=== PATIENT | female | born 1970 | race African-American/Black ===

== ENCOUNTER 2016-05-10 22:25 | Emergency (ER) | payer SELFPAY ==
[~2016-05-10] VITALS: Ht 170.2 cm; Wt 84.4 kg
[2016-05-10] MEDS ORDERED: NORVASC10 MG ORAL (22:44)
--- NOTE | 2016-05-10 22:47 | Emergency Room Report ---
History of Present Illness General Chief Complaint: Hypertension Source: Patient Present Illness HPI Patient is with complaints of uncontrolled hypertension She reports that she ran out of her Norvasc or 7 days ago Denies any chest pain or shortness of breath She denies any vomiting or diarrhea Denies any headache After smelling heavy amounts of marijuana on the patient She does state that she has been under a lot of stress her family member was here at the hospital recently with liver cancer She states that she did get a mild headache after smoking marijuana Patient recently had a change of living situation from [place] to [place] now states that she's going back to [place] However at this time does not have any medications Allergies: Coded Allergies: PENICILLINS (Verified Allergy, Intermediate, 05/10/16) Patient History Past Medical History: see triage record Pertinent Family History: none Now: No Reviewed Nursing Documentation: PMH: Agreed, PSxH: Agreed Nursing Documentation-PMH Past Medical History: No History, Except For Hx Hypertension: Yes Review of Systems All Other Systems: negative except mentioned in HPI Physical Exam Vital Signs Date Time Temp Pulse Resp B/P Pulse Ox O2 Delivery O2 Flow Rate FiO2 05/10/16 22:30 97.9 74 19 162/106 98 Room Air Sp02 EP Interpretation: reviewed, normal General Appearance: well appearing, no apparent distress Head: normocephalic, atraumatic Eyes: bilateral eye EOMI, bilateral eye PERRL ENT: hearing grossly normal, normal pharynx, TMs + canals normal, uvula midline Neck: full range of motion, supple, no meningismus, no bony tend Respiratory: lungs clear, normal breath sounds, no rhonchi, no respiratory distress, no retraction, no accessory muscle use Cardiovascular #1: normal peripheral pulses, regular rate, rhythm, no edema, no gallop, no JVD, no murmur Gastrointestinal: normal bowel sounds, non tender, soft, no mass, no organomegaly, non-distended, no guarding, no hernia, no pulsatile mass, no rebound Genitourinary: no CVA tenderness Musculoskeletal: normal inspection Neurologic: oriented x3, responsive, 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, motor strength/ tone normal, sensory intact Psychiatric: mood/affect normal Skin: normal color, no rash, warm/dry, palpation normal Lymphatic: normal inspection, no adenopathy Medical Decision Making Diagnostic Impression: Primary Impression: Hypertension ER Course Patient has a fairly benign medical evaluation Blood pressure systolic is 162 No signs of any obvious and organ injury or symptomatic pathology Patient was given a medication here And was given prescription for further outpatient followup Last Vital Signs Date Time Temp Pulse Resp B/P Pulse Ox O2 Delivery O2 Flow Rate FiO2 05/10/16 22:30 97.9 74 19 162/106 98 Room Air Status: improved Disposition: HOME, SELF-CARE Condition: Improved Scripts Amlodipine Besylate (Norvasc) 10 Mg Tablet 10 MG ORAL DAILY, #30 TAB Prov: YUKI LEE D.O. 05/10/16 Referrals: NOT CHOSEN IPA/,REFERRING (PCP) Patient Instructions: Hypertension, [id number] Additional Instructions: Patient is provided with the discharge instructions notified to follow up with primary doctor in the next 2-3 days otherwise return to the er with any worsening symptoms. YUKI LEE D.O. May 10, 2016 22:47
[2016-05-10 23:00] VITALS: BP 154/100
== END 2016-05-10 23:02 | disposition home or self-care (01) ==
LOC: EMR 22:44
DX: I10 Essential (primary) hypertension (principal); Z88.0 Allergy status to penicillin; F12.90 Cannabis use, unspecified, uncomplicated
CPT/HCPCS: 99283